=== PATIENT | female | born 1980 | race Hispanic/Latino ===

== ENCOUNTER 2016-09-21 19:51 | Outpatient (CLI) | payer MEDICAID ==
[2016-09-21 20:23] VITALS: BP 133/71
[2016-09-21] MEDS ORDERED: LACTATED RINGERS 500 ML IV ONE (21:02)
[2016-09-21 21:28] LABS: Bilirubin,Urine NEG (Negative); Blood,Urine NEG (Negative); Ketones,Urine TR mg/dL (Negative); Leukocyte Esterase,Urine NEG (Negative); Mucus,Urine 2+ /HPF; Nitrite,Urine NEG (Negative)
[2016-09-21 22:26] LABS: Anion Gap 20 mmol/L; Blood Urea Nitrogen 6 mg/dL (7-17); Calcium 8.9 mg/dL (8.4-10.2); Carbon Dioxide 19 mmol/L (22-30); Chloride 98.9 mmol/L (98-107); Glucose 145 mg/dL (65-100); Potassium 3.8 mmol/L (3.6-5.0); Sodium 134 mmol/L (137-145)
[2016-09-21] MEDS ORDERED: LACTATED RINGERS 1,000 ML ONE (23:10)
[2016-09-21] MEDS ORDERED: TYLENOL PO ONE (23:59)
--- NOTE | 2016-09-22 01:17 | Event Note ---
Date: 09/22/16 Cramps like period, back and leg pain. + movement no bleeding, no leaking. Exam per RN, cervix closed. Labs reviewed. Encouraged to obtain a maternity belt and stay off work until her next visit 09/24/2016.
== END 2016-09-22 | disposition home or self-care (01) ==
LOC: TRG 19:51
PROVIDERS: ATTEND Obstetrics & Gynecology
DX: O26.892 Other specified pregnancy related conditions, second trimester (principal); R25.2 Cramp and spasm; M54.9 Dorsalgia, unspecified; Z3A.25 25 weeks gestation of pregnancy
CPT/HCPCS: 36415; 80048; 81001; 82962; J7120

== ENCOUNTER 2016-11-10 11:44 | Outpatient (CLI) | payer MEDICAID ==
[2016-11-10] MEDS ORDERED: LACTATED RINGERS 500 ML IV ONE ×2 (11:49→11:50)
[2016-11-10 12:48] LABS: Bacteria,Urine 1+ /HPF (Negative); Bilirubin,Urine NEG (Negative); Blood,Urine NEG (Negative); Ketones,Urine NEG (Negative); Leukocyte Esterase,Urine SM (Negative); Mucus,Urine 3+ /HPF; Nitrite,Urine NEG (Negative)
[2016-11-10 12:56] LABS: Basophils % (Auto) 0.5 % (0.0-1.8); Eosinophils % (Auto) 0.4 % (0.0-4.3); Hematocrit 32.8 % (30.3-42.9); Hemoglobin 10.9 gm/dl (10.1-14.3); Mean Corpuscular HGB Conc 33 % (30-34); Mean Corpuscular Hemoglobin 26 pg (28-32); Mean Corpuscular Volume 79 fl (79-97); Platelet Count 306 K/mm3 (140-440); Red Blood Count 4.17 M/mm3 (3.65-5.03); Red Cell Distribution Width 14.3 % (13.2-15.2); White Blood Count 11.7 K/mm3 (4.5-11.0)
[2016-11-10 13:14] LABS: Alanine Aminotransferase 12 units/L (7-56); Albumin 3.1 g/dL (3.9-5); Albumin/Globulin Ratio 0.9 %; Alkaline Phosphatase 232 units/L (35-129); Anion Gap 18 mmol/L; Blood Urea Nitrogen 8 mg/dL (7-17); Calcium 8.6 mg/dL (8.4-10.2); Carbon Dioxide 19 mmol/L (22-30); Chloride 99.8 mmol/L (98-107); Glucose 130 mg/dL (65-100); Potassium 3.9 mmol/L (3.6-5.0); Sodium 133 mmol/L (137-145); Total Protein 6.5 g/dL (6.3-8.2)
--- NOTE | 2016-11-10 14:35 | Ultrasound Report ---
BIOPHYSICAL PROFILE: 2 - breathing movements 2 - movements 2 - posture and tone 2 - Qualitative amniotic fluid volume 8 - TOTAL SCORE OF POSSIBLE 8 Heart Rate (bpm) 145 The estimated gestational age is 32 weeks 6 days. LIMITED OB ULTRASOUND: Gestation: colon Position: cephalic RUBY = 14.9 cm
[2016-11-10 14:44] VITALS: BP 122/59
== END 2016-11-10 15:19 | disposition home or self-care (01) ==
LOC: TRG 11:44
PROVIDERS: ATTEND Obstetrics & Gynecology
DX: O47.03 False labor before 37 completed weeks of gestation, third trimester (principal); Z3A.33 33 weeks gestation of pregnancy
CPT/HCPCS: 36415; 59025; 76815; 76819; 80053; 81001; 82962; 85025; 96360; J7120

== ENCOUNTER 2016-11-12 12:34 | Outpatient (CLI) | payer MEDICAID ==
[2016-11-12 14:02] VITALS: BP 136/82
--- NOTE | 2016-11-15 07:23 | Vascular Lab Report ---
LOWER EXTREMITY VENOUS DUPLEX: REASON FOR EXAM: Pain of the lower extremities. COMMENTS ON THE RIGHT: All veins visualized are freely compressible without evidence of internal echogenicity. Flow is spontaneous and phasic throughout. COMMENTS ON THE LEFT: All veins visualized are freely compressible without evidence of internal echogenicity. Flow is spontaneous and phasic throughout. IMPRESSION: No evidence of acute or chronic deep venous thrombosis in either lower extremity.
== END 2016-11-12 14:45 | disposition home or self-care (01) ==
LOC: TRG 12:34
PROVIDERS: ATTEND Obstetrics & Gynecology
DX: O26.893 Other specified pregnancy related conditions, third trimester (principal); M79.669 Pain in unspecified lower leg; O47.03 False labor before 37 completed weeks of gestation, third trimester; Z3A.33 33 weeks gestation of pregnancy
CPT/HCPCS: 59025; 93970

== ENCOUNTER 2016-11-17 14:45 | Outpatient (CLI) | payer MEDICAID ==
[2016-11-17] MEDS ORDERED: LACTATED RINGERS 500 ML IV ONE (14:47)
[2016-11-17 15:41] LABS: Hematocrit 33.1 % (30.3-42.9); Hemoglobin 10.9 gm/dl (10.1-14.3); Mean Corpuscular HGB Conc 33 % (30-34); Mean Corpuscular Volume 78 fl (79-97); Platelet Count 311 K/mm3 (140-440); Red Blood Count 4.22 M/mm3 (3.65-5.03); Red Cell Distribution Width 14.1 % (13.2-15.2); White Blood Count 12.1 K/mm3 (4.5-11.0)
[2016-11-17 15:47] LABS: Bilirubin,Urine NEG (Negative); Blood,Urine NEG (Negative); Ketones,Urine NEG (Negative); Leukocyte Esterase,Urine NEG (Negative); Mucus,Urine 1+ /HPF; Nitrite,Urine NEG (Negative); Urobilinogen,Urine < 2.0 mg/dL (<2.0)
[2016-11-17 15:48] LABS: Protein,Urine >500 mg/dL (Negative)
[2016-11-17 15:49] LABS: Mean Corpuscular Hemoglobin 26 pg (28-32)
[2016-11-17 15:58] LABS: Alanine Aminotransferase 15 units/L (7-56); Lactate Dehydrogenase 142 units/L (91-180); Uric Acid 5.3 mg/dL (3.5-7.6)
[2016-11-17 16:14] VITALS: BP 113/51
== END 2016-11-17 16:52 | disposition home or self-care (01) ==
LOC: TRG 14:45
PROVIDERS: ATTEND Obstetrics & Gynecology
DX: O47.03 False labor before 37 completed weeks of gestation, third trimester (principal); Z3A.33 33 weeks gestation of pregnancy
CPT/HCPCS: 36415; 59025; 81001; 82239; 82565; 82962; 83615; 84450; 84460; 84550; 85027

== ENCOUNTER 2016-12-03 11:40 | Inpatient (IN) | payer MEDICAID ==
--- NOTE | 2016-12-03 12:13 | History and Physical Report ---
History of Present Illness Date of examination: 12/03/16 Date of admission: 12/03/16 11:40 History of present illness: Patient seen in office today with complaints of headache overnight diastolic blood pressure greater than 100 and patient recently completed a 24-hour urine greater than 4000 g. Due to the patient's symptoms and lab results being admitted for delivery for severe preeclampsia. Patient has a history of previous section and desires permanent sterilization. Menstrual History Regularity: regular Menses every: 28 days Duration: 5 LMP: 03/15/2016 LMP reliability: definite LMP character: normal test type: urine test Date: 04/30/2016 BC at conception: none Planned ? no EDC Calculations LMP: 12/20/2016 EDC Confirmation: 12/20/2016 Past History : 2 Premature Births: 0 Living Children: 1 Para: 1 Prev : 1 Aborta: 0 # 1 Delivery date: 10/02/2010 Weeks Gestation: 36 Delivery type: Delivery location: [facility] Infant Sex: Female weight: 6.2 Comments: induction/ pre Eclampsia Past Medical History: Diabetes, Type 2 Past Surgical History: : positive; gall bladder removed 2009 Cholecystectomy Past Medical History Diabetes: yes Abnormal PAP: negative MARIA ELENA Exposure: negative Infertility: negative Uterine Anomaly: negative Uterine Surgery (not C/S): negative Other Gynecologic Problems: negative Medical History Comments: DM PCOS Anxiety Depression Social Hx: Patient is Infection History Hx of STD: none Varicella/Chicken Pox Status: Previous Disease Genetic History Congenital Heart Defect: Mom: no Dad: no Venkatesh Disease: Mom: no Dad: no Thalassemia Mom: no Dad: no Neural Tube Defect Mom: no Dad: no Down's Syndrome Mom: no Dad: no Armand-Sachs Mom: no Dad: no Sickle Cell Disease/Trait Mom: no Dad: no Hemophilia Mom: no Dad: no Muscular Dystrophy Mom: no Dad: no Cystic Fibrosis Mom: no Dad: no Metcalfe Chorea Mom: no Dad: no Mental Retardation Mom: no Dad: no Fragile X Mom: no Dad: no Other Genetic/Chromosomal Disorder Mom: no Dad: no Child w/other defect Mom: no Dad: no Enviromental Exposures Xray Exposure: no Medication, drug, or alcohol use since LMP: no Chemical/Other Exposure: no Exposure to Cat Liter: no Hx of Parvovirus (Fifth Disease): no Occupational Exposure to Children: none Current Allergies (reviewed today): ERYTHROMYCIN (Critical) Past History Past Medical History: other (see HPI) Past Surgical History: other (see HPI) SUPPLIER QUALITY SPECIALIST History: other (see HPI) Social history: other (see HPI) - Obstetrical History Expected Date of Delivery: 12/20/16 Actual Gestation: 37 Week(s) 4 Day(s) : 2 Para: 1 Hx # Term Pregnancies: 0 Number of Pregnancies: 1 Spontaneous Abortions: 0 Induced : 0 Number of Living Children: 1 Medications and Allergies Allergies Allergy/AdvReac Type Severity Reaction Status Date / Time erythromycin base Allergy Severe Hives Verified 11/10/16 11:49 Home Medications Medication Instructions Recorded Confirmed Last Taken Type Insulin NPH/Regular [NovoLIN 70/30] 160 unit SQ QAM 05/23/15 09/22/16 09/21/16 08:00 History Sertraline [Zoloft] 25 mg PO QDAY 05/23/15 09/22/16 05/22/15 History Sucralfate [Carafate] 1 gm PO ACHS PRN #60 tablet 05/23/15 09/22/16 Unknown Rx metFORMIN [Glucophage] 1,000 mg PO BID 05/23/15 09/22/16 09/21/16 08:00 History Sertraline [Zoloft] 1 tab PO QDAY 05/15/16 09/22/16 Unknown History Insulin NPH, Human [NovoLIN N] 42 unit SUB-Q QHS units 05/17/16 09/22/16 Unknown Rx Insulin NPH, Human [NovoLIN N] 58 unit SUB-Q QDDIAB #3 bottle 05/17/16 Unknown Rx Insulin Regular, Human [HumuLIN R] 40 units SUB-Q QDDIAB units 05/17/1609/21/16 08:00 Rx Labetalol [Normodyne TAB] 100 mg PO BID #60 tablet 05/17/16 09/22/16 Unknown Rx Vit-Fe Fumar-FA [ 1 each PO QDAY tablet 05/17/16 09/22/16 10:00 Rx Vitamin] Sertraline [Zoloft] 100 mg PO QDAY tablet 05/17/16 09/22/16 Unknown Rx Insulin NPH, Human [NovoLIN N] 150 unit SUB-Q QHS 09/22/16 09/22/16 09/20/16 20: 00 History Insulin Regular, Human [HumuLIN R] 100 unit SQ ONCE 09/22/16 09/22/16 09/21/16 12:00 History Insulin Regular, Human [HumuLIN R] 100 units SUB-Q QHS 09/22/16 09/22/16 20:00 History Labetalol [Normodyne TAB] 50 mg PO BID 09/22/16 09/22/16 09/21/16 10:00 History Review of Systems Constitutional: weight gain Neurological: headaches Psychiatric: anxiety - Physical Exam Breasts: Positive: deferred Cardiovascular: Regular rate Abdomen: Positive: normal appearance, soft, other (well healed surgical scar) Genitourinary (Female): Positive: normal external genitalia Vagina: Positive: normal moisture Uterus: Positive: enlarged Extremities: Positive: edema Deep Tendon Reflex Grade: Normal +2 - Obstetrical FHR: category 1 Results Result Diagrams: 12/03/16 13:00 12/03/16 13:00 All other labs normal. Assessment and Plan - Patient Problems (1) Severe pre-eclampsia Current Visit: Yes Status: Acute Qualifiers: Trimester: third trimester Qualified Code(s): O14.13 - Severe pre-eclampsia , third trimester Plan to address problem: Patient pot symptom's and the signs with severe preeclampsia third trimester incision made to deliver patient will be started on magnesium sulfate for seizure prophylaxis. (2) Encounter for sterilization Current Visit: Yes Status: Acute Plan to address problem: Patient desires permanent sterilization. She declined temporary contraceptives. She understands the risks of the surgery include bleeding infection possible damage to bowel bladder or ureters. She understands that this surgery would make her permanently sterile. She also understands the approximate 1% failure rate. The patient understands all the above and desires to proceed. (3) Morbid obesity Current Visit: No Status: Acute Qualifiers: Obesity type: due to excess calories Qualified Code(s): E66.01 - Morbid ( severe) obesity due to excess calories (4) Pregestational diabetes mellitus, modified White class B Current Visit: No Status: Acute Plan to address problem: Patient takes metformin and insulin during . 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 All questions answered. Patient agrees to proceed
[2016-12-03] MEDS ORDERED: REGLAN IV ONE (12:21)
[2016-12-03] MEDS ORDERED: BICITRA PO ONE (12:21)
[2016-12-03] MEDS ORDERED: PEPCID IV ONE (12:21)
[2016-12-03] MEDS ORDERED: MAGNESIUM SULFATE 4GM/100ML 4 GM/100 ML BAG IV ONE (12:23)
[2016-12-03] MEDS ORDERED: D50W (25GM) IV PRN (12:23)
[2016-12-03] MEDS ORDERED: ANCEF/STERILE WATER 2 GM/20 ML 2 GM/20 ML SYRINGE IV NR (13:00)
[2016-12-03] MEDS ORDERED: PITOCin/NS 20 UNIT/1000ML DRIP 20 UNITS/1,000 ML BAG IV SCH ×2 (13:00→23:24)
[2016-12-03] MEDS: LACTATED RINGERS 1,000 ML IV SCH ×2 (13:20→14:09)
[2016-12-03 13:28] LABS: Basophils % (Auto) 0.4 % (0.0-1.8); Eosinophils % (Auto) 0.4 % (0.0-4.3); Hematocrit 34.9 % (30.3-42.9); Hemoglobin 11.4 gm/dl (10.1-14.3); Mean Corpuscular HGB Conc 33 % (30-34); Mean Corpuscular Volume 79 fl (79-97); Platelet Count 363 K/mm3 (140-440); Red Blood Count 4.43 M/mm3 (3.65-5.03); Red Cell Distribution Width 14.7 % (13.2-15.2); White Blood Count 13.8 K/mm3 (4.5-11.0)
[2016-12-03 13:30] LABS: Mean Corpuscular Hemoglobin 26 pg (28-32)
[2016-12-03] MEDS: MAGNESIUM SULFATE 40GM/1000ML 40 GM/1,000 ML BAG IV SCH ×2 (14:04→19:05)
[2016-12-03 14:21] LABS: Alanine Aminotransferase 10 units/L (7-56)
--- NOTE | 2016-12-03 14:47 | Anesthesia Day of Surgery ---
Anesthesia Day of Surgery - Day of Surgery Patient Examined: Yes Patient H&P Reviewed: Yes Patient is NPO: Yes (FSP)
--- NOTE | 2016-12-03 14:47 | Anesthesia Consultation ---
Anesthesia Consult and Med Hx Date of service: 12/03/16 - Airway Anesthetic Teeth Evaluation: Good ROM Head & Neck: Adequate Mental/Hyoid Distance: Adequate Mallampati Class: Class II Intubation Access Assessment: Possibly Difficult - Pulmonary Exam CTA: Yes - Cardiac Exam Cardiac Exam: RRR - Pre-Operative Health Status ASA Pre-Surgery Classification: ASA3, Emergency Proposed Anesthetic Plan: Epidural, Spinal - Pulmonary Hx Asthma: No COPD: No Hx Pneumonia: No - Cardiovascular System Hx Hypertension: Yes - Central Nervous System Hx Seizures: No Hx Psychiatric Problems: Yes (zoloft depression) - Endocrine Hx Renal Disease: No Hx End Stage Renal Disease: No Hx Insulin Dependent Diabetes: Yes Hx Hypothyroidism: No Hx Hyperthyroidism: No - Hematic Hx Anemia: No Hx Sickle Cell Disease: No - Other Systems Hx Alcohol Use: No
[2016-12-03 16:39] LABS: Anion Gap 19 mmol/L; BUN/Creatinine Ratio 18.33; Blood Urea Nitrogen 11 mg/dL (7-17); Calcium 8.7 mg/dL (8.4-10.2); Carbon Dioxide 18 mmol/L (22-30); Chloride 102.6 mmol/L (98-107); Glucose 94 mg/dL (65-100); Potassium 4.5 mmol/L (3.6-5.0); Sodium 135 mmol/L (137-145)
[2016-12-03] MEDS ORDERED: ANCEF/STERILE WATER 2 GM/20 ML IV ONE (17:30)
[2016-12-03] MEDS ORDERED: ePHEDrine SULFATE ONE (18:00)
[2016-12-03] MEDS ORDERED: NACL 0.9% IR ONE (18:00)
[2016-12-03] MEDS ORDERED: WATER FOR IRRIG STERILE IR ONE (18:00)
[2016-12-03] MEDS ORDERED: LACTATED RINGERS 1,000 ML ONE (18:05)
[2016-12-03] MEDS ORDERED: ZOFRAN IV PRN (19:01)
--- NOTE | 2016-12-03 19:01 | Post Anesthesia Evaluation ---
- Post Anesthesia Evaluation Patient Participated: Yes Airway Patent: Yes Stable Respiratory Function: Yes Temp > 96.8F: Yes Pain Manageable: Yes Adequeate Hydration: Yes Anesthesia Complications: No Block Receding Appropriately: Yes
[2016-12-03] MEDS: DILAUDID IV PRN ×2 (19:09→19:22)
[2016-12-03] MEDS ORDERED: NARCAN 0.4 MG/1 ML IV PRN ×2 (19:09→23:24)
[2016-12-03] MEDS ORDERED: APRESOLINE IV PRN (19:33)
[2016-12-03] MEDS ORDERED: TORADOL ONE (19:43)
[2016-12-03] MEDS ORDERED: DILAUDID PCA 6MG/30ML IV ONE (19:44)
[2016-12-03] MEDS ORDERED: DILAUDID PCA 6MG/30ML IV SCH (20:00)
[2016-12-03] MEDS ORDERED: NORMODYNE IV ONE (20:21)
--- NOTE | 2016-12-03 21:00 | Operative Report ---
Operative Report Operative Report: Date of procedure: 12/03/2016 Pre-operative diagnosis: Intrauterine at 37 weeks with severe preeclampsia, diabetes, previous section and desires permanent sterilization Post-operative diagnosis: Same Procedure name(s): Repeat low transverse section with bilateral tubal ligation modified Harleigh type Surgeon: Jose Dickson MD [employer]: Anesthesia: Spinal EBL: 700 mL Complications: None Findings: Patient with a normal uterus tubes and ovaries bilaterally a female weighing 7 lbs. 15 oz. Apgars 8 at 1 minute and 9 at 5 minutes Specimen(s): Portion left and right fallopian tube also placenta Procedure: The patient was brought to the operating room. A spinal was placed without any complications. She was then placed in left lateral tilt. Prepped and draped in the usual sterile manner. After testing for adequate anesthesia level, a Pfannenstiel incision was made through her previous scar. This incision was taken down to the fascia. The fascia was then nicked in the midline. This incision was extended out laterally with Ayala scissors. The fascia was then sharply and bluntly from the underlying rectus muscles. The rectus muscles were bluntly and sharply . The peritoneum was then entered with the mill operator head's fingers. This incision was spread vertically with care not to damage the bladder below. The bladder flap was then formed sharply and bluntly with Metzenbaum scissors. The Cole self- retaining tractor was then placed without any difficulty. A transverse incision was made in lower uterine segment. This incision was extended laterally with the operators fingers. The amniotic sac was then entered bluntly with the mill operator head's fingers. The infant was delivered from the vertex position. Bulb suction on the mother's abdomen. Cord was double clamped and cut. The was then passed to the nursery personnel who were in attendance. The above scores were given by the nursery personnel. The placenta was then bluntly removed. The uterus was then externalized and wiped clean the remaining products. The uterine incision was closed in layers. The first incision was closed in a locking manner using 0 Vicryl. This was followed by imbricating stitch also with 0 Vicryl. Attention was then switched to the patient's fallopian tubes. Each fallopian tube was identified by its fimbriated end. A portion of each tube was grabbed with the Rebeca clamp approximately 2-3 cm from the cornua. Each loop was double ligated with 0 plain suture. The loop were cut with Metzenbaum scissors. Each stump was found to be hemostatic and cauterized with the Bovie. Attention was then switched back to the uterine closure. This closure was hemostatic. The bladder flap was copiously irrigated and found to be hemostatic. The pelvis was copiously irrigated and found to be hemostatic. The uterus was then placed back to the patient's abdomen. The retractors were removed. The rectus muscles were inspected and found to be hemostatic. The fascia was then closed in a running manner using 0 Vicryl. This incision was hemostatic irrigation Bovie. The skin was reapproximated with 4-0 Vicryl subcuticularly. Skin Afix was placed over the The patient tolerated procedure well. Her urine was clear. The infant was admitted to the well baby nursery. The patient was accompanied to recovery room in good condition. Instrument count correct 3.
[2016-12-03] MEDS ORDERED: NORMODYNE PO SCH (22:00)
[2016-12-03] MEDS: NORMODYNE PO SCH (22:47)
[2016-12-03] MEDS: TORADOL IV SCH (23:20)
[2016-12-03] MEDS ORDERED: NACL 0.9% 1000 ML 1,000 ML IV SCH (23:24)
[2016-12-03] MEDS ORDERED: SODIUM CHLORIDE FLUSH SYRINGE 10 ML IV NR (23:24)
[2016-12-03] MEDS ORDERED: TUCKS PAD TP PRN (23:24)
[2016-12-03] MEDS ORDERED: LANSINOH TP PRN (23:24)
[2016-12-04] MEDS: ZOFRAN IV PRN ×2 (06:39→12:29)
[2016-12-04] MEDS: TORADOL IV SCH ×2 (06:40→12:22)
[2016-12-04 07:38] LABS: Hematocrit 31.7 % (30.3-42.9); Hemoglobin 10.2 gm/dl (10.1-14.3)
[2016-12-04] MEDS: GLUCOPHAGE PO SCH ×2 (09:57→22:41)
[2016-12-04] MEDS: NORMODYNE PO SCH ×2 (09:58→22:42)
[2016-12-04] MEDS: FEOSOL PO SCH (09:58)
[2016-12-04] MEDS ORDERED: MILK OF MAGNESIA PO PRN (10:24)
[2016-12-04] MEDS: ZOLOFT PO SCH (12:21)
[2016-12-04] MEDS: MAGNESIUM SULFATE 40GM/1000ML 40 GM/1,000 ML BAG IV SCH (12:33)
--- NOTE | 2016-12-04 14:52 | Progress Note ---
Assessment and Plan - Patient Problems (1) Severe pre-eclampsia Current Visit: Yes Status: Acute Qualifiers: Trimester: third trimester Qualified Code(s): O14.13 - Severe pre-eclampsia , third trimester Plan to address problem: Still on Mag, it will come down at 1800. BP ok. Had 4 gm proteinuria prior to delivery. (2) Pregestational diabetes mellitus, modified White class B Current Visit: No Status: Acute Plan to address problem: Currently on clear liquids and Mag with ok glucoses on sliding scale, was on Insulin 75/25 at unknown dose but she has that at home. Was on large Insulin dose during . (3) delivery delivered Current Visit: Yes Status: Acute (4) Encounter for sterilization Current Visit: Yes Status: Acute (5) Previous section Current Visit: Yes Status: Acute Subjective - Subjective Date of service: 12/04/16 Principal diagnosis: Pre E, DM, REpeat c/s BTL Interval history: Still on Mag but awake alert and hungry. Patient reports: appetite normal, voiding normally (Garcia), pain well controlled , no ambulating normally [place]: doing well Objective - Vital Signs Latest vital signs: Vital Signs Temp Pulse Pulse Resp BP BP Pulse Ox 12/04/16 11:53 97.4 F L 103 H 18 139/80 12/04/16 09:58 140/76 12/04/16 08:00 97.9 F 69 18 140/73 12/04/16 06:25 97.7 F 73 20 159/82 12/04/16 04:40 97.8 F 72 20 150/83 12/04/16 04:06 18 12/04/16 02:20 97.7 F 82 20 136/81 12/03/16 23:20 98.3 F 81 20 158/85 12/03/16 22:59 80 180/87 12/03/16 22:55 87 94 12/03/16 22:54 88 95 12/03/16 22:49 92 H 96 12/03/16 22:47 89 158/78 12/03/16 22:44 82 96 12/03/16 22:39 91 H 96 12/03/16 22:37 83 94 12/03/16 22:34 89 95 12/03/16 22:32 80 158/78 94 12/03/16 22:29 87 95 12/03/16 22:24 90 96 12/03/16 22:19 91 H 96 12/03/16 22:17 79 176/88 94 12/03/16 22:14 79 95 12/03/16 22:11 79 94 12/03/16 22:09 83 95 12/03/16 22:04 82 95 12/03/16 22:02 76 172/84 12/03/16 21:59 84 96 12/03/16 21:54 80 97 12/03/16 21:49 84 95 12/03/16 21:47 75 173/83 94 12/03/16 21:44 84 96 12/03/16 21:39 81 94 12/03/16 21:35 77 195/93 94 12/03/16 21:34 75 96 12/03/16 21:32 80 201/92 12/03/16 21:29 80 97 12/03/16 21:24 78 97 12/03/16 21:19 84 96 12/03/16 21:16 74 208/103 12/03/16 21:14 77 95 12/03/16 21:00 76 10 L 184/98 97 12/03/16 20:50 81 12 192/106 97 12/03/16 20:45 90 206/115 12/03/16 20:40 92 H 16 198/110 97 12/03/16 20:30 90 14 206/115 97 12/03/16 20:20 81 15 200/118 97 12/03/16 20:10 84 13 201/114 97 12/03/16 20:00 86 14 186/114 97 12/03/16 19:50 84 12 167/104 97 12/03/16 19:40 81 18 183/104 98 12/03/16 19:30 78 13 175/95 98 12/03/16 19:20 81 14 167/98 97 12/03/16 19:10 75 15 171/89 98 12/03/16 19:00 77 14 152/92 99 12/03/16 18:50 99 06 17:08 84 96 12/03/16 17:03 82 167/82 95 02 16:58 79 96 12/03/16 16:53 85 93 12/03/16 16:48 80 95 12/03/16 16:46 87 164/82 06//17 16:43 84 96 12/03/16 16:38 84 96 12/03/16 16:36 90 93 12/03/16 16:33 81 93 12/03/16 16:31 75 164/97 12/03/16 16:28 71 95 12/03/16 16:23 78 94 12/03/16 16:18 84 95 12/03/16 16:17 87 181/95 12/03/16 16:14 92 H 93 12/03/16 16:13 103 H 96 12/03/16 16:08 78 97 12/03/16 16:03 75 96 12/03/16 16:01 77 165/89 12/03/16 15:58 79 96 12/03/16 15:53 74 94 12/03/16 15:48 70 94 12/03/16 15:46 72 160/82 12/03/16 15:43 70 94 12/03/16 15:40 68 94 12/03/16 15:38 72 94 12/03/16 15:33 75 94 12/03/16 15:31 75 161/77 12/03/16 15:28 78 95 12/03/16 15:23 76 95 12/03/16 15:21 81 94 12/03/16 15:18 81 96 12/03/16 15:16 72 149/73 12/03/16 15:13 78 95 12/03/16 15:12 84 94 12/03/16 15:08 77 95 12/03/16 15:03 77 96 12/03/16 15:02 80 94 12/03/16 15:01 76 159/84 12/03/16 14:58 77 96 12/03/16 14:53 73 96 Intake and Output 12/03/16 12/04/16 12/04/16 22:59 06:59 14:59 Intake Total 2600 750 Output Total 2900 1000 850 Balance -300 -250 -850 Intake: IV 2600 750 MAGNESIUM SULFATE 40GM/ 300 1000ML 40 gm In 1,000 ml @ 2 GM/HR 50 mls/hr IV DIRECT RAYMOND Rx#:[id number] PITOCin/NS 20 UNIT/1000ML 450 DRIP 20 units In 1,000 ml @ As Directed IV TITR RAYMOND Rx#:[id number] Output: Urine 2900 850 850 Indwelling Catheter 600 850 850 Uretheral (Garcia) 1100 Emesis 150 Other: Total, Output Amount 600 300 850 Estimated Blood Loss 700 - Exam Breasts: Present: deferred Cardiovascular: Present: Regular rate Lungs: Present: Normal air movement Abdomen: Present: normal appearance, soft, normal bowel sounds Uterus: Present: firm Extremities: Present: edema (2+) Incision: Present: normal, dry, intact - Labs Labs: Abnormal lab results 12/03/16 12/03/16 12/04/16 Range/Units 13:00 23:36 00:07 Sodium 135 L (137-145) mmol/L Carbon Dioxide 18 L (22-30) mmol/L Creatinine 0.6 L (0.7-1.2) mg/dL POC Glucose 131 H (70-105) Magnesium 4.30 H (1.7-2.3) mg/dL 12/04/16 12/04/16 12/04/16 Range/Units 05:17 05:42 12:05 Sodium (137-145) mmol/L Carbon Dioxide (22-30) mmol/L Creatinine (0.7-1.2) mg/dL POC Glucose 134 H (70-105) Magnesium 5.30 H 5.60 H (1.7-2.3) mg/dL
[2016-12-04] MEDS ORDERED: PHENERGAN PR ONE (17:03)
[2016-12-04] MEDS ORDERED: PHENERGAN PO PRN (17:04)
[2016-12-04] MEDS ORDERED: PHENERGAN PR PRN (17:05)
[2016-12-04] MEDS ORDERED: FIORICET PO PRN ×2 (18:31→18:32)
--- NOTE | 2016-12-04 18:55 | Progress Note ---
Subjective Date of service: 12/04/16 Principal diagnosis: Headache Interval history: 36 yo F with pre-eclampsia, gestational diabetes s/p POD 1 under spinal anesthesia. Patient reports headache that started yesterday evening a few hours after . She does report having a history of headaches. Headache does not seem to be positional however because she does not notice it getting better when laying down. I discussed with her that it may be a migraine headache but still possibility for spinal headache. I also discussed about an epidural blood patch. Patient would like to try conservative management for now. I discussed with her to drink fluids with caffeine and also increase her fluid intake. She can also have PO pain meds for pain. If this does not help or worsening of headache then will try epidural blood patch. Objective - Constitutional Vitals: Vital Signs - 12hr 12/04/16 12/04/16 12/04/16 08:00 09:58 10:00 Temperature 97.9 F Pulse Rate [ 69 Right From Monitor] Respiratory 18 18 Rate Blood Pressure 140/76 Blood Pressure 140/73 [Right Arm] 12/04/16 12/04/16 12/04/16 12:00 14:00 14:10 Temperature 97.4 F L 97.8 F Pulse Rate [ 103 H 98 H Right From Monitor] Respiratory 18 18 18 Rate Blood Pressure Blood Pressure 139/80 138/80 [Right Arm] 12/04/16 16:00 Temperature 97.7 F Pulse Rate [ 74 Right From Monitor] Respiratory 18 Rate Blood Pressure Blood Pressure 131/79 [Right Arm] - Labs CBC & Chem 7: 12/04/16 07:17 12/03/16 13:00 Labs: Abnormal lab results 12/03/16 12/04/16 12/04/16 Range/Units 23:36 00:07 05:17 POC Glucose 131 H 134 H (70-105) Magnesium 4.30 H (1.7-2.3) mg/dL 12/04/16 12/04/16 12/04/16 Range/Units 05:42 12:05 12:32 POC Glucose 123 H (70-105) Magnesium 5.30 H 5.60 H (1.7-2.3) mg/dL 12/04/16 Range/Units 17:49 POC Glucose 114 H (70-105) Magnesium (1.7-2.3) mg/dL
[2016-12-05] MEDS: MOTRIN PO PRN ×2 (03:46→09:31)
[2016-12-05] MEDS ORDERED: BOOSTRIX IM ONE (06:00)
[2016-12-05] MEDS: GLUCOPHAGE PO SCH ×2 (09:33→22:43)
[2016-12-05] MEDS: FEOSOL PO SCH (09:33)
[2016-12-05] MEDS: NORMODYNE PO SCH ×2 (09:34→22:44)
[2016-12-05] MEDS: ZOLOFT PO SCH (09:34)
--- NOTE | 2016-12-05 09:51 | Progress Note ---
Subjective Date of service: 12/05/16 Principal diagnosis: Headache Interval history: Patients headache resolved last PM after magnesium was discontinued. Objective - Constitutional Vitals: Vital Signs - 12hr 12/04/16 12/05/16 12/05/16 22:42 00:00 03:46 Temperature 98.3 F Pulse Rate 84 Pulse Rate [ 73 Right From Monitor] Respiratory 20 18 Rate Blood Pressure 130/70 Blood Pressure 116/64 [Right Arm] 12/05/16 09:34 Temperature Pulse Rate Pulse Rate [ Right From Monitor] Respiratory Rate Blood Pressure 138/78 Blood Pressure [Right Arm] - Labs CBC & Chem 7: 12/04/16 07:17 12/03/16 13:00 Labs: Abnormal lab results 12/04/16 12/04/16 12/04/16 Range/Units 12:05 12:32 17:49 POC Glucose 123 H 114 H (70-105) Magnesium 5.60 H (1.7-2.3) mg/dL 12/04/16 12/05/16 12/05/16 Range/Units 18:15 00:08 06:56 POC Glucose 144 H 146 H (70-105) Magnesium 5.50 H (1.7-2.3) mg/dL
[2016-12-05] MEDS: PERCOCET 5/325 PO PRN ×2 (14:58→22:43)
--- NOTE | 2016-12-05 18:10 | Progress Note ---
Assessment and Plan - Patient Problems (1) Severe pre-eclampsia Current Visit: Yes Status: Acute Qualifiers: Trimester: third trimester Qualified Code(s): O14.13 - Severe pre-eclampsia , third trimester (2) Pregestational diabetes mellitus, modified White class B Current Visit: No Status: Acute (3) delivery delivered Current Visit: Yes Status: Acute (4) Encounter for sterilization Current Visit: Yes Status: Acute (5) Previous section Current Visit: Yes Status: Acute Subjective - Subjective Principal diagnosis: Headache Interval history: POD #2 Now off Mag, BP and glucoses wnl on sliding scale. Headache resolved with Fioricet and patient looks and feels good. Will be ready for d/c in AM Patient reports: appetite normal, voiding normally, ambulating normally [place]: doing well Objective - Vital Signs Latest vital signs: Vital Signs Temp Pulse Pulse Resp BP BP 12/05/16 16:45 98.4 F 80 20 132/88 12/05/16 09:34 138/78 12/05/16 08:50 98.1 F 76 20 138/65 12/05/16 03:46 18 12/05/16 00:00 98.3 F 73 20 116/64 12/04/16 22:42 84 130/70 Intake and Output 12/05/16 12/05/16 12/05/16 06:59 14:59 22:59 Intake Total 840 360 Output Total 1300 Balance -460 360 Intake: Oral 840 360 Output: Urine 1300 Void 1300 Other: Total, Intake Amount 360 360 Total, Output Amount 500 # Voids Void 3 1 - Exam Breasts: Present: deferred Cardiovascular: Present: Regular rate Lungs: Present: Normal air movement Abdomen: Present: soft, normal bowel sounds Uterus: Present: firm Extremities: Present: normal Incision: Present: normal, dry, intact - Labs Labs: Abnormal lab results 12/04/16 12/04/16 12/04/16 Range/Units 12:32 17:49 18:15 POC Glucose 123 H 114 H (70-105) Magnesium 5.50 H (1.7-2.3) mg/dL 12/05/16 12/05/16 12/05/16 Range/Units 00:08 06:56 13:08 POC Glucose 144 H 146 H 112 H (70-105) Magnesium (1.7-2.3) mg/dL
[2016-12-06] MEDS: PERCOCET 5/325 PO PRN (05:18)
[2016-12-06] MEDS: FEOSOL PO SCH (09:09)
[2016-12-06] MEDS: GLUCOPHAGE PO SCH (09:09)
[2016-12-06] MEDS: NORMODYNE PO SCH (09:09)
[2016-12-06] MEDS: ZOLOFT PO SCH (09:10)
--- NOTE | 2016-12-06 09:37 | Discharge Summary ---
Providers - Providers Date of Admission: 12/03/16 11:40 Date of discharge: 12/06/16 Attending physician: CHELSIE MCKEON Primary care physician: SALENA MCCLURE Hospitalization Reason for admission: section, other (uncontrolled DM, severe pre E, cholestasis of ,thyroid dz) Delivery: Procedure: section, bilateral tubal ligation Incision: normal, dry, intact (open to air with surgical glue in place) complications: none [place] baby: male Hospital course: Pt noted to have pre E and previous c/s and was scheduled to have repeat c/s. Pt underwent repeat c/s with tubal ligation. Hospital course has not been complicated. pt will be d/c home today. Condition at discharge: Good Disposition: DISCHARGED TO HOME OR SELFCARE Plan - Discharge Medications Prescriptions: Ibuprofen [Motrin 800 MG tab] 800 mg PO Q8HR PRN #30 tablet PRN Reason: Pain oxyCODONE /ACETAMINOPHEN [Percocet 5/325 mg] 1 - 2 tab PO Q4HR PRN #30 tab PRN Reason: Pain - Provider Discharge Summary Activity: routine, no sex for 6 weeks, no heavy lifting 4 weeks, no strenuous exercise Diet: routine Instructions: other (pt may shower at home) Additional instructions: [] Smoking cessation referral if applicable(refer to patient education folder for contact #) [] Refer to [facility] Booklet Call your doctor immediately for: * Fever > 100.5 * Heavy vaginal bleeding ( >1 pad per hour) * Severe persistent headache * Shortness of breath * Reddened, hot, painful area to leg or breast * Drainage or odor from incision. * Keep incision clean and dry at all times and follow doctor's instructions regarding bathing/showering - Follow up plan Follow up: SALENA MCCLURE MD [Primary Care Provider] - 7 Days
[2016-12-06 10:04] VITALS: BP 140/73
== END 2016-12-06 12:30 | disposition home or self-care (01) | DRG 765 ==
LOC: LD 11:40 → OB 23:22
PROVIDERS: ADMIT Obstetrics & Gynecology; ATTEND Obstetrics & Gynecology
PROC: 10D00Z1 Extraction of Products of Conception, Low, Open Approach (ICD-10-PCS; principal; 2016-12-03)
PROC: 0UB70ZZ Excision of Bilateral Fallopian Tubes, Open Approach (ICD-10-PCS; 2016-12-03)
DX: O34.211 Maternal care for low transverse scar from previous cesarean delivery (principal); K83.1 Obstruction of bile duct; O14.14 Severe pre-eclampsia complicating childbirth; Z3A.37 37 weeks gestation of pregnancy; Z37.0 Single live birth; O99.214 Obesity complicating childbirth; O24.429 Gestational diabetes mellitus in childbirth, unspecified control; O26.62 Liver and biliary tract disorders in childbirth; O99.284 Endocrine, nutritional and metabolic diseases complicating childbirth; E07.9 Disorder of thyroid, unspecified; O99.344 Other mental disorders complicating childbirth; F41.9 Anxiety disorder, unspecified; F32.9 Major depressive disorder, single episode, unspecified; E66.01 Morbid (severe) obesity due to excess calories; O99.52 Diseases of the respiratory system complicating childbirth; J45.909 Unspecified asthma, uncomplicated; O16.4 Unspecified maternal hypertension, complicating childbirth; Z30.2 Encounter for sterilization; Z90.49 Acquired absence of other specified parts of digestive tract; Z88.1 Allergy status to other antibiotic agents; Z68.43 Body mass index [BMI] 50.0-59.9, adult
CPT/HCPCS: 36415; 80048; 82962; 83735; 84450; 84460; 85014; 85018; 85025; 86850; 86900; 86901; 88302; 88307; 90471; 90715; 99211; A6250; G0463; J0360; J0690; J1170; J1885; J2405; J2590; J2765; J3475; J7030; J7120

== ENCOUNTER 2021-11-07 17:38 | Emergency (ER) | payer OTHER ==
[2021-11-07] MEDS ORDERED: KETOROLAC 30 MG/1 ML INJ IM ONE (20:58)
[2021-11-07] MEDS ORDERED: HYDROcodone/ACETAMINOPHEN 5-325 MG TAB PO ONE (20:58)
[2021-11-07] MEDS ORDERED: ONDANSETRON 4 MG ODT TAB PO ONE (20:58)
[2021-11-07] MEDS ORDERED: dexAMETHasone 20 MG/5 ML VIAL IM ONE (20:58)
[2021-11-07 22:02] VITALS: BP 156/88
[2021-11-07 23:04] LABS: Bilirubin,Urine NEG (Negative); Blood,Urine SM (Negative); Color,Urine Yellow (Yellow); Mucus,Urine FEW /HPF; WBC,Urine < 1.0 /HPF (0.0-6.0)
[2021-11-07 23:06] LABS: HCG Qualitative,Urine Negative (Negative)
--- NOTE | 2021-11-07 23:45 | Emergency Department Report ---
ED Back Pain/Injury HPI - General Chief Complaint: Back Pain/Injury Stated Complaint: PAIN BACK/LEFT LEG AND CHEST Source: patient Limitations: No Limitations - History of Present Illness Initial Comments: Patient is a 41-year-old female with a history of morbid obesity, hypertension, btl-pfryeuw-yjsspmfzu diabetes and chronic low back pain who presents to the ED with acute exacerbation of her chronic low back pain that radiates to left leg for the last 3 days. Patient states that the symptoms started spontaneously and that it has been constant and persistent despite taking aqfg-oci-dsgnayk medications for pain. Patient states that the pain radiates diffusely to her left leg and when that occurs she is unable to bear weight on the left leg. Patient denies bilateral lower extremity weakness, numbness and tingling, dysuria, urinary frequency and urgency, hematuria, nausea and vomiting, fever, chills, abdominal pain, urinary or bowel incontinence, saddle paresthesia, chest pain or shortness of breath or neck pain. MD Complaint: back pain (Low back pain that radiates to the left leg) -: Sudden, days(s) (3) Similar Symptoms Previously: Yes Place: home Radiation: left leg Severity: severe Severity scale (0 -10): 8 Quality: sharp, aching Consistency: constant Worsens With: movement, walking, deep breaths/cough Context: unknown Associated Symptoms: denies other symptoms. denies: confusion, chest pain, numbness, difficulty walking, cough, difficulty urinating, diaphoresis, fe mirian/chills, constipation, headaches, abdominal pain, loss of appetite, malaise, nausea/vomiting, rash, shortness of breath, syncope, other - Related Data Home Medications Medication Instructions Recorded Confirmed Last Taken labetaloL [Labetalol 100mg TAB] 50 mg PO BID 09/22/16 12/04/16 09/21/16 10:00 Previous Rx's Medication Instructions Recorded Last Taken Type Sucralfate [Carafate] 1 gm PO ACHS PRN #60 tablet 05/23/15 Unknown Rx Vit-Fe Fumar-FA [ 1 each PO QDAY tablet 05/17/16 09/21/16 10:00 Rx Vitamin] Sertraline [Zoloft] 100 mg PO QDAY tablet 05/17/16 Unknown Rx Ibuprofen [Motrin 800 MG tab] 800 mg PO Q8HR PRN #30 tablet 12/04/16 Unknown Rx oxyCODONE /ACETAMINOPHEN [Percocet 1 - 2 tab PO Q4HR PRN #30 tab 12/04/16 Unknown Rx 5/325 mg] Lidocain2.5%/Prilocai2.5% [Emla] 2 gm TP ONCE #1 tube 12/06/16 Unknown Rx Acetaminophen/Codeine [Tylenol 2 tab PO Q6H PRN #30 tab 04/15/18 Unknown Rx /Codeine # 3 tab] Doxycycline Hyclate [Doxycycline 100 mg PO Q12HR 7 Days #14 tab 04/15/18 Unknown Rx Hyclate TAB] Gabapentin 300 mg PO BID #45 cap 11/07/21 Unknown Rx Ibuprofen [Motrin] 800 mg PO Q8HR PRN #30 tablet 11/07/21 Unknown Rx methOCARBAMOL [Robaxin TAB] 750 mg PO Q8H PRN #30 tab 11/07/21 Unknown Rx predniSONE [Deltasone] 60 mg PO QDAY #15 tab 11/07/21 Unknown Rx Allergies Allergy/AdvReac Type Severity Reaction Status Date / Time erythromycin base Allergy Severe Hives Verified 04/15/18 16:13 ED Review of Systems ROS: Stated complaint: PAIN BACK/LEFT LEG AND CHEST Other details as noted in HPI Constitutional: denies: chills, fever Eyes: denies: eye pain, eye discharge, vision change ENT: denies: ear pain, throat pain Respiratory: denies: cough, shortness of breath, wheezing Cardiovascular: denies: chest pain, palpitations Endocrine: no symptoms reported Gastrointestinal: denies: abdominal pain, nausea, diarrhea Genitourinary: denies: urgency, dysuria, discharge Musculoskeletal: back pain (Low back pain that radiates to the left leg), arth ralgia (Left hip pain). denies: joint swelling Skin: denies: rash, lesions Neurological: denies: headache, weakness, paresthesias Psychiatric: denies: anxiety, depression Hematological/Lymphatic: denies: easy bleeding, easy bruising ED Past Medical Hx - Past Medical History Previous Medical History?: Yes Hx Hypertension: Yes Hx Congestive Heart Failure: No Hx Diabetes: Yes Hx Deep Vein Thrombosis: No Hx Renal Disease: No Hx Sickle Cell Disease: No Hx Seizures: No Hx Asthma: No Hx COPD: No Hx Dementia: Yes Hx HIV: No Additional medical history: Back pain - Surgical History Past Surgical History?: Yes Hx Cholecystectomy: Yes Additional Surgical History: X 2. TONSILLECTOMY. Bilateral tubal ligation - Social History Smoking Status: Never Smoker Substance Use Type: None - Medications Home Medications: Home Medications Medication Instructions Recorded Confirmed Last Taken Type Sucralfate [Carafate] 1 gm PO ACHS PRN #60 tablet 05/23/15 12/04/16 Unknown Rx Vit-Fe Fumar-FA [ 1 each PO QDAY tablet 05/17/16 12/04/16 09/21/16 10:00 Rx Vitamin] Sertraline [Zoloft] 100 mg PO QDAY tablet 05/17/16 12/04/16 Unknown Rx labetaloL [Labetalol 100mg TAB] 50 mg PO BID 09/22/16 12/04/16 09/21/16 10:00 History Ibuprofen [Motrin 800 MG tab] 800 mg PO Q8HR PRN #30 tablet 12/04/16 Unknown Rx oxyCODONE /ACETAMINOPHEN [Percocet 1 - 2 tab PO Q4HR PRN #30 tab 12/04/16 Unknown Rx 5/325 mg] Lidocain2.5%/Prilocai2.5% [Emla] 2 gm TP ONCE #1 tube 12/06/16 Unknown Rx Acetaminophen/Codeine [Tylenol 2 tab PO Q6H PRN #30 tab 04/15/18 Unknown Rx /Codeine # 3 tab] Doxycycline Hyclate [Doxycycline 100 mg PO Q12HR 7 Days #14 tab 04/15/18 Unknown Rx Hyclate TAB] Gabapentin 300 mg PO BID #45 cap 11/07/21 Unknown Rx Ibuprofen [Motrin] 800 mg PO Q8HR PRN #30 tablet 11/07/21 Unknown Rx methOCARBAMOL [Robaxin TAB] 750 mg PO Q8H PRN #30 tab 11/07/21 Unknown Rx predniSONE [Deltasone] 60 mg PO QDAY #15 tab 11/07/21 Unknown Rx ED Physical Exam - General Limitations: No Limitations General appearance: alert, in no apparent distress - Head Head exam: Present: atraumatic, normocephalic, normal inspection - Eye Eye exam: Present: normal appearance, PERRL, EOMI Pupils: Present: normal accommodation - ENT ENT exam: Present: normal exam, normal orophraynx, mucous membranes moist, TM's normal bilaterally, normal external ear exam - Neck Neck exam: Present: normal inspection, full ROM. Absent: tenderness - Respiratory Respiratory exam: Present: normal lung sounds bilaterally. Absent: respiratory distress, wheezes, chest wall tenderness, accessory muscle use, decreased breath sounds - Cardiovascular Cardiovascular Exam: Present: normal rhythm, tachycardia, normal heart sounds. Absent: systolic murmur, diastolic murmur, rubs, gallop - GI/Abdominal GI/Abdominal exam: Present: soft, normal bowel sounds. Absent: tenderness, guarding, rebound, hyperactive bowel sounds, hypoactive bowel sounds - Extremities Exam Extremities exam: Present: normal inspection, full ROM, normal capillary refill. Absent: tenderness - Back Exam Back exam: Present: normal inspection, full ROM, tenderness (Palpable lumbosacral paraspinal musculoskeletal tenderness), muscle spasm, paraspinal tenderness. Absent: CVA tenderness (R), CVA tenderness (L), vertebral tenderness - Neurological Exam Neurological exam: Present: alert, oriented X3, CN II-XII intact, normal gait, reflexes normal - Psychiatric Psychiatric exam: Present: normal affect, normal mood - Skin Skin exam: Present: warm, dry, intact, normal color. Absent: rash ED Course Vital Signs 11/07/21 11/07/21 18:04 22:01 Temperature 98.0 F 97.8 F Pulse Rate 120 H 110 H Respiratory 18 16 Rate Blood Pressure 133/91 Blood Pressure 156/88 [Left] O2 Sat by Pulse 97 100 Oximetry ED Medical Decision Making - Medical Decision Making This is a 41-year-old female with a history of morbid obesity, hypertension, jpo-kugfzuj-nlnhxzpjx diabetes and chronic low back pain who prese nts to the ED with acute exacerbation of her chronic low back pain that radiates to left leg for the last 3 days. Patient states that the symptoms started spontaneously and that it has been constant and persistent despite taking xsmw-ryn-lkvcjht medications for pain. Patient states that the pain radiates diffusely to her left leg and when that occurs she is unable to bear weight on the left leg. In the ED, patient is alert and oriented x3 and is not in any distress. Patient is afebrile but tachycardic in triage. Patient was treated for pain in the ED and urinalysis is unremarkable. On reevaluation, patient's pain is well controlled medication and tachycardia resolved. Patient will discharge home on pain medications and advised to follow-up with her primary care physician in 5 to 7 days for reevaluation. Patient is advised return to the ED immediately if symptoms get worse. - Differential Diagnosis Muscle spasm; chronic back pain; sciatica; UTI; muscle strain Critical care attestation.: If time is entered above; I have spent that time in minutes in the direct care of this critically ill patient, excluding procedure time. ED Disposition Clinical Impression: Acute exacerbation of chronic low back pain, Spasm of muscle of lower back Chronic low back pain with left-sided sciatica Qualifiers: Back pain laterality: left Qualified Code(s): M54.42 - Lumbago with sciatica, left side; G89.29 - Other chronic pain Disposition: 01 HOME / SELF CARE / HOMELESS Is pt being admited?: No Does the pt Need Aspirin: No Condition: Stable Instructions: Muscle Cramps and Spasms, Aaok-iy-Tbhi, Sciatica, Imaq-yk-[id number], Chronic Back Pain, [id number] Additional Instructions: Urinalysis is unremarkable. Your symptoms are likely due to acute exacerbation of your chronic pain with sciatica affecting the left leg. Therefore take medication as advised, drink plenty of fluids, follow-up with your primary care physician in 7 to 10 days for reevaluation. Return to the ED immediately if symptoms get worse. Prescriptions: predniSONE [Deltasone] 60 mg PO QDAY #15 tab Gabapentin 300 mg PO BID #45 cap Ibuprofen [Motrin] 800 mg PO Q8HR PRN #30 tablet PRN Reason: Pain , Severe (7-10) methOCARBAMOL [Robaxin TAB] 750 mg PO Q8H PRN #30 tab PRN Reason: Muscle Spasm Referrals: [facility] [Provider Group] - 3-5 Days Forms: Work/School Release Form(ED) Time of Disposition: 23:46 Print Language: PERSIAN
== END 2021-11-08 00:19 | disposition home or self-care (01) ==
LOC: ED 17:38
DX: M54.50 Low back pain, unspecified (principal); M62.830 Muscle spasm of back; I10 Essential (primary) hypertension; E11.8 Type 2 diabetes mellitus with unspecified complications
CPT/HCPCS: 81001; 81025; 96372; 99283; J1100; J1885; J3490; Q0162

== ENCOUNTER 2021-12-31 07:03 | Outpatient (CLI) | payer OTHER ==
--- NOTE | 2022-01-02 15:55 | Mammography Report ---
DIGITAL SCREENING MAMMOGRAM WITH CAD, 12/31/2021 CLINICAL INFORMATION / INDICATION: Routine screening mammography. TECHNIQUE: Digital bilateral 2D mammography was obtained in the craniocaudal and mediolateral oblique projections. This examination was interpreted with the benefit of Computer-Aided Detection analysis. COMPARISON: None. Baseline mammogram. FINDINGS: Breast Density: There are scattered areas of fibroglandular density. No dominant mass, suspicious calcifications, or architectural distortion in the left breast. Right breast focal density with possible spiculation. Location is upper outer quadrant. Depth is midd le. Distance from Nipple (cm) is 6.8 cm. Density is best seen on right MLO view. IMPRESSION: Right breast focal density with possible spiculation in the upper outer quadrant. Ultraso und right breast with possible additional mammographic views recommended. Follow up recommendation: Ultrasound BI-RADS Category 0: INCOMPLETE. Needs additional imaging evaluation and/or prior mammograms for walter rison. A "normal" or negative report should not discourage follow up or biopsy of a clinically significant f inding. A written summary of these findings will be mailed to the patient. The patient will be entered into a mammography reporting system which will generate a reminder letter for the patient's next appointmen t at the appropriate interval. The [employer] recommends yearly mammograms starting at age 40 and continuing as l lara as a woman is in good health. Breast MRI is recommended for women with an approximate 20-25% or greater lifetime risk of breast cancer, including women with a strong family history of breast or ova damaris cancer or who have been treated for Hodgkin's disease. Signer Name: Matteo Germain MD Signed: 01/02/2022 3:51 PM Workstation Name: [employer]
== END 2021-12-31 07:04 | disposition home or self-care (01) ==
LOC: MAMMO 07:03
PROVIDERS: ATTEND Obstetrics & Gynecology
DX: Z12.31 Encounter for screening mammogram for malignant neoplasm of breast (principal)
CPT/HCPCS: 77067

== ENCOUNTER 2022-01-25 07:20 | Outpatient (CLI) | payer OTHER ==
--- NOTE | 2022-01-25 09:15 | Mammography Report ---
RIGHT DIGITAL DIAGNOSTIC MAMMOGRAM , 01/25/2022 RIGHT LIMITED BREAST ULTRASOUND CLINICAL INFORMATION / INDICATION: 41-year-old female presents for evaluation of area of distortion n oted on recent right screening mammogram. R92.2 INCONCLUSIVE MAMMOGRAM TECHNIQUE: Digital right mammographic imaging was performed. Spot compression views were obtained. Li mited ultrasound was performed. COMPARISON: 12/31/2021 prior mammogram FINDINGS: Breast Density: There are scattered areas of fibroglandular density. MAMMOGRAPHIC FINDINGS: No dominant mass, suspicious calcifications, or architectural distortion in th e right breast. Spot compression views of the area of concern in the superior right breast do not per sist with spot compression imaging. Area of concern appears to be due to summation artifact. ULTRASOUND FINDINGS: Targeted ultrasound evaluation was performed of the area of interest. No sonog raphic abnormality noted in the right breast including upper outer quadrant. IMPRESSION: No mammographic or sonographic evidence of malignancy. Follow up recommendation: Routine yearly screening mammogram. BI-RADS Category 1: NEGATIVE. A "normal" or negative report should not discourage follow up or biopsy of a clinically significant f inding. A written summary of these findings will be mailed to the patient. The patient will be entered into a mammography reporting system which will generate a reminder letter for the patient's next appointmen t at the appropriate interval. According to the [employer], yearly mammograms are recommended starting at age 40 and continuing as long as a woman is in good health. Breast MRI is recommended for women with an arslan roximately 20-25% or greater lifetime risk of breast cancer, including women with a strong family his tory of breast or ovarian cancer and women who have been treated for Hodgkin's disease. Signer Name: Hue Horta MD Signed: 01/25/2022 9:10 AM Workstation Name: [employer]
== END 2022-01-25 07:21 | disposition home or self-care (01) ==
LOC: US 07:20
PROVIDERS: ATTEND Obstetrics & Gynecology
DX: R92.2 Inconclusive mammogram (principal)